=== PATIENT | female | born 1985 | race Caucasian/White ===

== ENCOUNTER 2020-02-26 12:55 | Emergency (ER) | payer OTHER ==
[~2020-02-26] VITALS: Ht 160 cm; Wt 58.1 kg
[2020-02-26 13:00] VITALS: BP_SYST 115
[2020-02-26] MEDS ORDERED: LIDOCAINE 1% 10 MG/ML, 20 ML MDV INJ ONE (13:15)
[2020-02-26 13:52] VITALS: BP_SYST 115
== END 2020-02-26 13:52 | disposition home or self-care (01) ==
LOC: SED 12:55
DX: N76.4 Abscess of vulva (principal)
CPT/HCPCS: 56405; 99284; J2001; J7030